=== PATIENT | male | born 1995 | race Caucasian/White ===

== ENCOUNTER → 2019-08-26 12:04 | Outpatient (BNVA) | payer SELFPAY | PROVIDERS: Family Provider Counselor Professional; Visit Provider Emergency Medicine | DX: M79.632 Pain in left forearm (principal); M25.532 Pain in left wrist | CPT/HCPCS: 73090; 73110 ==

== ENCOUNTER 2024-02-24 16:38 | Inpatient (IN) | payer OTHER, SELFPAY ==
[2024-02-24 16:47] VITALS: BP 118/88; PULSE 111; TEMP 36.7; O2SAT 96; BMI 20.5
--- NOTE | 2024-02-24 17:04 | ED.C_ITS ---
HPI - Psych 2 General: Chief Complaint: Psychiatric Symptoms Stated Complaint: MHE Time Seen by Provider: 02/24/24 16:55 Source: patient Mode of arrival: ambulatory Limitations: no limitations History of Present Illness: 28-year-old male has a history alcoholis m he is currently in rehab states that he has been out of his psychiatric meds and states that he has been feeling extremely anxious and like he is going to blow up. He states he does have depression denies being actively suicidal or homicidal but states he feels he needs help with his anxiety depression. Associated symptoms: Reports depression Related Data Previous Rx's Medication Instructions Recorded gabapentin 300 mg capsule 300 mg PO TID #90 caps 07/29/19 sertraline 100 mg tablet (Zoloft) 100 mg PO DAILY #30 tabs 07/29/19 [id number]-QS 7.5 ml PO Q6H PRN cold symptoms 03/01/22 2 mg-30 mg-10 mg/5 mL oral syrup #160 mL (Bromfed DM) dexamethasone 2 mg tablet 6 mg (3 x 2 mg) PO DAILY 5 days 03/01/22 #15 tabs nirmatrelvir 300 mg (150 mg See Rx Instructions PO PER PKG DIR 03/01/22 x2)-ritonavir 100 mg tablet,dose #1 packet pack (Paxlovid) Allergies Allergy/AdvReac Type Severity Reaction Status Date / Time No Known Allergies Allergy Verified 02/24/24 16:53 Review of Systems 2 Const: Denies: fever(s), chills, body aches or change in appetite ENMT: Denies: throat pain or dental pain Card: Denies: chest pain Resp: Denies: dyspnea GI: Denies: abdominal pain, nausea, vomiting or diarrhea Musc: Denies: neck pain or back pain Skin/Breast: Denies: rash Neuro: Denies: headache(s) Psych: Reports: anxiety and depression PFSH ED 2 PFSH: Social History Smoking and tobacco/nicotine status: current every day tobacco/nicotine user Alcohol intake: never Substance/Drug Use: never Physical Exam 2 Const: COMMON NORMALS: no acute distress, patient oriented x3 and healthy appearing HENMT: COMMON NORMALS: normocephalic and atraumatic HEAD & SCALP: n ormocephalic and atraumatic Eye: COMMON NORMALS: conjunctivae normal CONJUNCTIVA: Yes conjunctivae normal Neck/C-Spine: COMMON NORMALS: full ROM and supple Chest: COMMONS NORMALS: normal inspection of the chest Resp: COMMON NORMALS: normal respiratory effort Cardio: RATE: tachycardic Extremity: COMMON NORMALS: normal to inspection and full ROM Neuro: COMMON NORMALS: patient oriented x3, moves all extremities and no focal motor deficits Psych: COMMON NORMALS: mental status grossly normal, Normal thought process present and cooperative THOUGHT PROCESS: Normal thought process present Skin: COMMON NORMALS: no rashes or lesions noted and no wounds GENERAL SKIN EXAM: no rashes or lesions noted Course 2 Vital Signs: Vital signs: Vital Signs Temperature 98.1 F 02/24/24 16:47 Pulse Rate 111 H 02/24/24 18:39 Blood Pressure 118/88 02/24/24 18:39 Pulse Oximetry 96 02/24/24 18:39 Oxygen Delivery Me thod Room Air 02/24/24 16:47 [facility] - Psych Medical Decision Making Patient presents here with anxiety along with depression patient voluntarily was admitted to the psych [facility] as he has been worsening depression and has been out of his psych meds he is not suicidal homicidal he is voluntary admit he is medically cleared will admit at this time Medical Records I reviewed the patient's medical records. Lab Data I reviewed the patient's lab results. 02/24/24 17:15 02/24/24 17:15 Laboratory Results WBC 4.93 10^3/uL (3.29-11.43) 02/24/24 17:15 RBC 4.70 10^6/uL (3.85-5.65) 02/24/24 17:15 Hgb 15.20 g/dL (11.27-16.99) 02/24/24 17:15 Hct 42.9 % (37-53) 02/24/24 17:15 MCV 91.3 fl (82-101) 02/24/24 17:15 MCH 32.3 pg (27-33) 02/24/24 17:15 MCHC 35.4 g/dL (30-55) 02/24/24 17:15 RDW 11.9 % (12.1-15.1) L 02/24/24 17:15 Plt Count 285 10^3/cmm (157-399) 02/24/24 17:15 MPV 9.4 fL (7.4-10.4) 02/24/24 17:15 Neut % (Auto) 53.0 % 02/24/24 17:15 Lymph % (Auto) 35.1 % 02/24/24 17:15 [place] % (Auto) 10.5 % 02/24/24 17:15 Eos % (Auto) 0.4 % 02/24/24 17:15 Baso % (Auto) 0.8 % 02/24/24 17:15 Neut # (Auto) 2.61 10^3/uL (1.8-7.7) 02/24/24 17:15 Lymph # (Auto) 1.7 10^3/uL (0.8-4.8) 02/24/24 17:15 [place] # (Auto) 0.5 10^3/uL (0.2-0.9) 02/24/24 17:15 Eos # (Auto) 0.0 10^3/uL (0.0-0.8) 02/24/24 17:15 Baso # (Auto) 0.0 10^3/uL (0.0-0.1) 02/24/24 17:15 Nucleated RBC % (auto) 0 % 02/24/24 17:15 Nucleated RBCs # 0.0 /100WBC 02/24/24 17:15 Sodium 149 mmol/L (136-145) H 02/24/24 17:15 Potassium 3.3 mmol/L (3.5-5.1) L 02/24/24 17:15 Chloride 107 mmol/L (98-107) 02/24/24 17:15 Carbon Dioxide 28 mmol/L (22-29) 02/24/24 17:15 Anion Gap 17.3 (5-19) 02/24/24 17:15 BUN 5 mg/dL (6-20) L 02/24/24 17:15 Creatinine 1.0 mg/dL (0.7-1.2) 02/24/24 17:15 GFR Calculation 87.7 mL/min (90-130) L 02/24/24 17:15 Glucose 99 mg/dL (65-115) 02/24/24 17:15 Calculated Osmolality 305 mOsm/kg (285-295) H 02/24/24 17:15 Calcium 8.4 mg/dL (8.5-10.5) L 02/24/24 17:15 Total Bilirubin 0.4 mg/dL (0.15-1.2) 02/24/24 17:15 AST 41 U/L (0-40) H 02/24/24 17:15 ALT 26 U/L (0-41) 02/24/24 17:15 Alkaline Phosphatase 91 U/L (40-130) 02/24/24 17:15 Total Protein 6.8 g/dL (6.6-8.7) 02/24/24 17:15 Albumin 4.5 g/dL (3.5-5.2) 02/24/24 17:15 Globulin 2.3 g/dL (1.3-4.6) 02/24/24 17:15 Salicylates < 0.3 mg/dL (3-10) L 02/24/24 17:15 Acetaminophen < 5.0 ug/mL (10-30) L 02/24/24 17:15 Ethyl Alcohol 338 mg/dL (0-10) H* 02/24/24 17:15 No radiology studies performed this visit Discharge Plan Discharge Patient Disposition: Admitted As Inpatient Admit Provider: Bryan Jolley Clinical Impression: Depression Condition: Stable Coding Level of Care Code ED Explosive Ordnance Handler for Ciara Roland
[2024-02-24 17:20] LABS: Basophils % 0.8 %; Eosinophils % 0.4 %; Hematocrit 42.9 % (37-53); Lymphocytes # 1.7 10^3/uL (0.8-4.8); Lymphocytes % 35.1 %; Mean Corpuscular HGB Conc 35.4 g/dL (30-55); Mean Corpuscular Hemoglobin 32.3 pg (27-33); Mean Corpuscular Volume 91.3 fl (82-101); Mean Platelet Volume 9.4 fL (7.4-10.4); Monocytes # 0.5 10^3/uL (0.2-0.9); Monocytes % 10.5 %; Neutrophils # 2.61 10^3/uL (1.8-7.7); Nucleated Red Blood Cells % 0 %; Platelet Count 285 10^3/cmm (157-399); Red Cell Distribution Width 11.9 % (12.1-15.1); White Blood Count 4.93 10^3/uL (3.29-11.43)
[2024-02-24 17:37] LABS: Alanine Aminotransferase 26 U/L (0-41); Albumin Level 4.5 g/dL (3.5-5.2); Alkaline Phosphatase 91 U/L (40-130); Anion Gap 17.3 (5-19); Aspartate Amino Transferase 41 U/L (0-40); Blood Urea Nitrogen 5 mg/dL (6-20); Calcium 8.4 mg/dL (8.5-10.5); Carbon Dioxide 28 mmol/L (22-29); Chloride 107 mmol/L (98-107); Creatinine Clr Calc Pharmacy 87.5301; Globulin 2.3 g/dL (1.3-4.6); Glomerular Filtration Rate 87.7 mL/min (90-130); Glucose 99 mg/dL (65-115); Osmolality Calculated 305 mOsm/kg (285-295); Potassium 3.3 mmol/L (3.5-5.1); Sodium 149 mmol/L (136-145); Total Bilirubin 0.4 mg/dL (0.15-1.2); Total Protein 6.8 g/dL (6.6-8.7)
[2024-02-24 17:39] LABS: Acetaminophen < 5.0 ug/mL (10-30); Salicylate < 0.3 mg/dL (3-10)
[2024-02-24 17:41] LABS: Alcohol Level 338 mg/dL (0-10)
[2024-02-24 18:39] VITALS: BP 118/88; PULSE 111; O2SAT 96
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
[2024-02-24 20:04] VITALS: BP 126/77; PULSE 70; RESP 16; TEMP 37.1; O2SAT 98
[2024-02-24 20:11] LABS: Amphetamines Screen Urine Negative (Negative); Barbiturates Screen Urine Negative (Negative); Benzodiazepines Screen Urine Negative (Negative); Cocaine Screen Urine Negative (Negative); Opiate Screen Urine Negative (Negative); PCP Screen Urine Negative (Negative); THC Screen Urine Positive (Negative)
[2024-02-24 23:53] VITALS: BP 125/67; PULSE 87; RESP 16; TEMP 37.2; O2SAT 97
[2024-02-24 23:54] VITALS: BP 125/67; PULSE 87; RESP 16; TEMP 37.2; O2SAT 97
[2024-02-25 04:00] VITALS: BP 137/78; PULSE 66; RESP 18; TEMP 37.2; O2SAT 99
[2024-02-25 08:00] VITALS: BP 132/76; PULSE 52; RESP 16; O2SAT 99
[2024-02-25] MEDS: folic acid 1 mg Tablet PO (08:11)
[2024-02-25] MEDS: thiamine 100 mg Tablet PO (08:11)
[2024-02-25] MEDS: multivitamin therapeutic Tablet 1 TAB PO (08:11)
[2024-02-25] MEDS: gabapentin 100 mg Capsule PO ×3 (10:06→20:22)
[2024-02-25] MEDS: sertraline 50 mg Tablet PO (10:06)
[2024-02-25] MEDS: acetaminophen 325 mg Tablet 650 MG PO (10:06)
[2024-02-25 12:00] VITALS: BP 150/88; PULSE 56; RESP 16; TEMP 37.2; O2SAT 100
--- NOTE | 2024-02-25 13:38 | P.NPUHP_ITS ---
Providers/Chief Complaint 2 Admitting Physician: Bryan Jolley MD Chief Complaint: MHE HPI NPU History of Present Illness Benjamin Urban is a 28 year old male with a history of alcohol dependence who had stated that he had been feeling more depressed and anxious over the past few days as he had been without his Zoloft for the past several months. He had presented with a blood alcohol level of 308 in the emergency department. He had stated a past history of depression with low motivation and low energy and states that he needed help with managing his alcohol use as well. He reports a history of alcohol use since the age of 10. He had reported being a chronic daily drinker and reported a history of blackouts and a history of shakes. He reports that he had been abstinent from the use of alcohol for approximately 5 to 6 years but relapsed last year. He had reported that he has suffered from depression for several years and reports that he continues to struggle with chronic anxiety. He reports having struggles with managing his worry. He reports that his worry often leads him to struggle with falling asleep and staying asleep. He reports no prior history of manic symptoms. He had reported no other substance use. Inpatient psychiatric history: He had been hospitalized in [place] for depression in October 2023. Outpatient psychiatric history: None Substance abuse history: He had reported a past history of methamphetamine use but reports not having used in several years. He had reported beginning the use of alcohol at the age of 10 and stated that he had received Antabuse during his substance abuse treatment and stated that he had previously also been had a sober living situation through [facility] in 2022 where he stayed for 3 months. Medical History: none Surgical History: none Allergies: nkda Medications: gabapentin 300mg tid Family History: bipolar disorder-mother/sister, alcohol abuse-paternal and maternal side of family Legal History: none reported Social History: hx of speech therapy in school, dropped out of in 12th grade, raised by father after parents split up at young age. He has 5 siblings, 2nd youngest of 6 children, no hx of sexual, physical or emotional abuse, hx of early age use of alcohol. No legal problems, works various jobs, including working on [employer]. Meds NPU Home Medications Medication Instructions Recorded Confirmed Last Taken Type No Known Home Medications 02/24/24 02/24/24 Unknown History gabapentin 100 mg capsule 100 mg PO TID 02/25/24 02/25/24 Unknown History sertraline 50 mg tablet 50 mg PO DAILY 02/25/24 02/25/24 Unknown History Allergies Allergy/AdvReac Type Severity Reaction Status Date / Time No Known Allergies Allergy Verified 02/24/24 16:53 PFSH NPU 2 PFSH: Social History Smoking and tobacco/nicotine status: current every day tobacco/nicotine user Alcohol intake: never Substance/Drug Use: never Mental Status Exam 2 MSE Comments: Casually dressed white male who was pleasant and cooperative on interview. He appeared in mild distress. There was evidence of mild psychomotor retardation. There is no evidence of any abnormal involuntary motor movements tics or tremors appreciated. His attention span appeared adequate. His mood was described as depressed. His affect was mood congruent and restricted in range. His thought process was linear logical and goal-directed. His thought content showed no evidence of active homicidal or suicidal ideation currently. He did not appear to be responding internal stimuli. There was no clear evidence of delusional thinking. His recent remote memory were grossly intact. He was alert and oriented to person place time and situation. His insight was partial. His judgment was poor. His impulse control appeared limited at this time. Vitals/I&O/Wt Last Vital Signs Temp 99.0 F 02/25/24 12:00 Pulse 56 L 02/25/24 12:00 Resp 16 02/25/24 12:00 BP 150/88 02/25/24 12:00 Pulse Ox 100 02/25/24 12:00 O2 Del Method Room Air 02/25/24 12:00 Weight last 48 hrs Weight 54.431 kg Data NPU 02/24/24 17:15 02/24/24 17:15 A&P Assessment and plan (1) Major depressive disorder, recurrent: (2) Alcohol dependence: (3) SOHAIL (generalized anxiety disorder): Plan 28-year-old male with alcohol dependence admitted with worsening depression and anxiety in the absence of his medications for several months. #1.? Engage patient in individual milieu and group therapy. #2?? Recommend sober living treatment at the highest level of care to which the patient is willing to commit #3??? CIWA for alcohol withdrawal #4?? TO-15 minute checks #5?? Will attempt to gather collateral information #6. Restart Zoloft 50mg daily and gabapentin at 100mg tid. ? Involuntary Hold Information 2 96 Hour Hold: 96 Hour Involuntary Admission: No Attestations NPU 2 Medical Necessity Statement*: Inpatient hospitalization is medically necessary and deemed to ?be ?the clinically appropriate intervention ?at this time.? We will monitor/initiate medications and make changes as indicated.? The patient will be in the hospital for over 2 midnights.? The patient?s likely length of stay 2-3days. Coding Level of Care Code Acute Code for Chg Fwd Diagnoses Major depressive disorder, recurrent F33.9 Alcohol dependence F10.20 SOHAIL (generalized anxiety disorder) F41.1
[2024-02-25 16:00] VITALS: BP 132/75; PULSE 59; RESP 16; TEMP 37.2; O2SAT 98
[2024-02-25 20:00] VITALS: BP 144/93; PULSE 67; RESP 16; TEMP 37.1; O2SAT 99
[2024-02-25] MEDS: hyDROXYzine 25 mg Capsule 50 MG PO (20:22)
[2024-02-25] MEDS: trazodone 50 mg Tablet PO (20:22)
[2024-02-26] VITALS (7 sets, daily range): BP systolic 119–154; BP diastolic 56–90; PULSE 62–82; RESP 16–18; TEMP 36.4–37.3; O2SAT 95–100
[2024-02-26] MEDS: folic acid 1 mg Tablet PO (10:03)
[2024-02-26] MEDS: thiamine 100 mg Tablet PO (10:03)
[2024-02-26] MEDS: sertraline 50 mg Tablet PO (10:03)
[2024-02-26] MEDS: multivitamin therapeutic Tablet 1 TAB PO (10:03)
[2024-02-26] MEDS: gabapentin 100 mg Capsule PO ×3 (10:04→20:05)
--- NOTE | 2024-02-26 13:41 | P.NPUPN_ITS ---
Subjective NPU 2 Subjective: 28-year-old white male with significant history of alcohol dependence currently endorsing some symptoms of alcohol withdrawal including increased anxiety and reporting desire to receive treatment. He had endorsed depression as well and reported no side effects from the Zoloft. Staff notes patient had been less isolative. He had endorsed that he would consider treatment and was agreeable to considering IM Vivitrol to help with harm reduction with the use of alcohol. He reported no suicidal thoughts currently. He had reported having some support stating that family was suggesting to him that he receive more intense help. He had stated that he had desire to go to the [facility] but stated that he would have difficulties with remaining there for up to a year. He denied any current feelings of hopelessness. He had reported feeling more shaky today. Mental Status Exam 2 MSE Comments: Casually dressed white male who was pleasant and cooperative on interview. He appeared in mild distress. There was evidence of mild psychomotor retardation. There is no evidence of any abnormal involuntary motor movements other than mild tremors appreciated. His attention span appeared adequate. His mood was described as depressed. His affect was mood congruent and restricted in range. His thought process was linear logical and goal-directed. His thought content showed no evidence of active homicidal or suicidal ideation currently. He did not appear to be responding internal stimuli. There was no clear evidence of delusional thinking. His recent remote memory were grossly intact. He was alert and oriented to person place time and situation. His insight was partial. His judgment was poor. His impulse control appeared limited at this time. Vitals/I&O/Wt Last Vital Signs Temp 97.9 F 02/26/24 11:40 Pulse 74 02/26/24 11:40 Resp 16 02/26/24 11:40 BP 154/86 02/26/24 11:40 Pulse Ox 95 02/26/24 11:40 O2 Del Method Room Air 02/26/24 11:40 Weight last 48 hrs Weight 54.431 kg Data NPU 02/24/24 17:15 02/24/24 17:15 A&P Assessment and plan (1) Major depressive disorder, recurrent: (2) Alcohol dependence: (3) SOHAIL (generalized anxiety disorder): Plan 28-year-old male with alcohol dependence admitted with worsening depression and anxiety in the absence of his medications for several months. #1.? Engage patient in individual milieu and group therapy. #2?? Recommend sober living treatment at the highest level of care to which the patient is willing to commit #3??? CIWA for alcohol withdrawal, patient at high risk. #4?? TO-15 minute checks #5?? Will attempt to gather collateral information #6. Restart Zoloft 50mg daily with titration to 100mg daily and gabapentin at 100mg tid. ? Involuntary Hold Information 2 96 Hour Hold: 96 Hour Involuntary Admission: No Attestations NPU 2 Medical Necessity Statement*: Inpatient hospitalization is medically necessary and deemed to ?be ?the clinically appropriate intervention ?at this time.? We will monitor/initiate medications and make changes as indicated.? The patient?s likely length of stay 2-3days. Coding Level of Care Code Acute Code for Chg Fwd Diagnoses Major depressive disorder, recurrent F33.9 Alcohol dependence F10.20 SOHAIL (generalized anxiety disorder) F41.1
[2024-02-26] MEDS: nicotine 2 mg Gum BUCCAL ×2 (17:07→19:01)
[2024-02-26] MEDS: trazodone 50 mg Tablet PO (20:04)
[2024-02-27 04:00] VITALS: BP 124/65; PULSE 67; RESP 16; TEMP 36.8; O2SAT 95
[2024-02-27 07:37] VITALS: BP 128/84; PULSE 68; RESP 16; TEMP 36.8; O2SAT 93
--- NOTE | 2024-02-27 07:45 | PC.NURSE ---
during morning shift assessment, patient states that he is feeling really good. Patient denies SI, HI, AVH, depression, and anxiety. Patient reports neck pain 5/10. Patient denies any questions or concerns. Patient cooperative.
[2024-02-27] MEDS: thiamine 100 mg Tablet PO (08:17)
[2024-02-27] MEDS: folic acid 1 mg Tablet PO (08:17)
[2024-02-27] MEDS: gabapentin 100 mg Capsule PO ×2 (08:17→16:30)
[2024-02-27] MEDS: acetaminophen 325 mg Tablet 650 MG PO (08:17)
[2024-02-27] MEDS: multivitamin therapeutic Tablet 1 TAB PO (08:17)
[2024-02-27] MEDS: nicotine 2 mg Gum BUCCAL (08:18)
[2024-02-27] MEDS: sertraline 50 mg Tablet 75 MG PO (08:18)
[2024-02-27 12:00] VITALS: BP 123/78; PULSE 88; RESP 16; TEMP 36.9; O2SAT 98
[2024-02-27 14:39] VITALS: BP 140/94; PULSE 70; RESP 16; TEMP 37.3; O2SAT 97
[2024-02-27 14:42] VITALS: BP 140/94; PULSE 70; RESP 16; TEMP 37.3; O2SAT 97
== END 2024-02-27 16:53 | disposition home or self-care (01) | DRG 885 ==
LOC: ER 17:05 → NP 17:37
PROVIDERS: Admitting Provider Psychiatry & Neurology Psychiatry; Emergency Provider Emergency Medicine; Family Provider Counselor Professional; Visit Provider Psychiatry & Neurology Psychiatry
DX: F33.9 Major depressive disorder, recurrent, unspecified (principal); F10.20 Alcohol dependence, uncomplicated; Y90.8 Blood alcohol level of 240 mg/100 ml or more; F17.210 Nicotine dependence, cigarettes, uncomplicated; F41.1 Generalized anxiety disorder; Z81.8 Family history of other mental and behavioral disorders; Z81.1 Family history of alcohol abuse and dependence
CPT/HCPCS: 36415; 80053; 80306; 80307; 85025; 96372; 97150; 97165; 99285; J3411